=== PATIENT | male | born 1955 | race Caucasian/White ===

== ENCOUNTER → 2018-04-06 | Outpatient (CLI) | payer OTHER ==
[~2018-04-06] MED LIST: ASPI81TA28 PO; CARV25TA2 PO; FLUT1INH INH; FRS/40 PO; PRVHFAIN INH; SPRIN/30 INH
[2018-04-06 18:10] LABS: HEMATOCRIT 45.8 % (42-52); HEMOGLOBIN 15.2 g/dL (14.0-18.0); MEAN CELL VOLUME 89.3 fL (80-100); MEAN CORPUSCULAR HEMOGLOBIN 29.6 pg (25-34); MEAN CORPUSCULAR HGB CONC 33.2 g/dl (32-36); MEAN PLATELET VOLUME 11.5 fL (7.4-10.4); PLATELET COUNT 225 K/uL (130-400); RED CELL DISTRIBUTION WIDTH SD 49.3 fL (36.4-46.3); WHITE BLOOD COUNT 12.49 K/uL (4.8-10.8)
[2018-04-06 18:23] LABS: PTT PATIENT 30.1 SECONDS (21.0-31.0)
[2018-04-06 18:28] LABS: BLOOD UREA NITROGEN 20 mg/dl (7-18); CALCIUM 8.9 mg/dl (8.5-10.1); CARBON DIOXIDE 30 mmol/L (21-32); CREATININE 1.21 mg/dl (0.60-1.40); GLUCOSE 77 mg/dl (70-99); POTASSIUM 3.8 mmol/L (3.5-5.1); SODIUM 140 mmol/L (136-145)
== END | disposition home or self-care (01) ==
LOC: C.LABMFLN 11:16
PROVIDERS: ATTEND Internal Medicine Cardiovascular Disease
DX: Z01.818 Encounter for other preprocedural examination (principal)

== ENCOUNTER → 2018-04-14 | Day surgery (SDC) | payer OTHER ==
[~2018-04-14] VITALS: Ht 180.3 cm; Wt 145.0 kg
[~2018-04-14] MED LIST changes: +ADENOSINE IV SOLN 3 MG/ML 2 ML VIAL ONE; +ALBUT/IPRATROP 3MG/0.5MG NEB 3 ML VIAL INH SCH; +NURSING VERBAL MED ORDER ONE
[2018-04-14 07:15] VITALS: BP 166/82; PULSE 67; TEMP 37.2; O2SAT 98; Ht 180.3 cm; Wt 145.0 kg
[2018-04-14 08:10] VITALS: PULSE 63; O2SAT 96
--- NOTE | 2018-04-14 09:55 | ECHOCARDIOGRAM REPORT ---
*NOTICE TO RECEIVING LIBERTARIAN AGENCY This information is strictly Confidential and protected under [place] law. [place] law prohibits you from making any further disclosure of this information unless further disclosure is expressly permitted by the written consent of the person to whom it pertains or is authorized by law. A general authorization for the release of medical or other information is not sufficient for this purpose. Hospital accepts no responsibility if the information is made available to any other person, INCLUDING THE PATIENT. Interpretation Summary * Name: MICKEY CARR Study Date: 04/14/2018 08:19 AM BP: 166/82 mmHg * Patient Location: [facility] HR: 67 * : 1955 (M/d/yyyy) Gender: Male Height: 71 in * Age: 63 yrs Ethnicity: [place] Weight: 319 lb * Ordering Physician: Rashaun Ramirez * Referring Physician: Rashaun Ramirez * Performed By: Pia Francois RDCS * * Reason For Study: CHF * BSA: 2.6 m2 * -- Conclusions -- * Technically limited study despite use of Definity ultrasaound contrast. * 1. Grossly normal LV size, borderline concentric LVH. * 2. LVEF 50-55%. Abnormal septal motion consistent with conduction abnormality. * 3. Grossly normal RV size and function. * 4. No significant valvular wall motion abnormalities. * 5. No prior studies for comparison. Procedure Details * The study was technically limited. * The study was technically difficult. * Limited views were obtained. * There were technical limitations due to patient'sbody habitus * A contrast injection of Definity was performed to improve assessment of LV function. * Contrast was injected into an intravenous site in the left arm. * One vial of Definity ultrasound contrast was diluted in normal saline to a total volume of 10 ml. A total of '3' ml of solution was administered during imaging. * Lot # [id number] of Definity utilized for procedure. * Expiration date 03/17. * The attending nurse who injected the contrast agent was QUIANA WEST RN. Left Ventricle * The left ventricle is grossly normal size. * There is borderline concentric left ventricular hypertrophy. * Ejection Fraction = 50-55%. * Septal motion is consistent with conduction abnormality. Right Ventricle * The right ventricle is grossly normal size. * The right ventricular systolic function is normal as assessed by tricuspid annular plane systolic excursion (TAPSE) (normal >1.5 cm). Atria * The left atrial size is normal. * Right atrial size is normal. * No ASD detected; PFO is not assessed. Mitral Valve * There is mild mitral annular calcification. * There is no mitral valve stenosis. * Significant mitral regurgitation is absent. Tricuspid Valve * There is trace tricuspid regurgitation. Aortic Valve * The aortic valve is not well visualized. * No hemodynamically significant valvular aortic stenosis. * There is no significant aortic regurgitation. Pulmonic Valve * The pulmonary valve is inadequately visualized, but the Doppler data is adequate for interpretation. * Pulmonic stenosis is absent. * There is no significant pulmonary regurgitation. Pericardium/Pleural * There is no pericardial effusion. MMode 2D Measurements and Calculations LVAd ap4 36.9 cm\S\2 LVLd ap4 8.4 cm EDV(MOD-sp4) 131.0 ml LVAs ap4 18.2 cm\S\2 LVLs ap4 6.9 cm ESV(MOD-sp4) 40.7 ml EF(MOD-sp4) 68.9 % LVAd ap2 40.1 cm\S\2 LVLd ap2 8.6 cm EDV(MOD-sp2) 152.0 ml LVAs ap2 20.7 cm\S\2 LVLs ap2 7.1 cm ESV(MOD-sp2) 50.4 ml EF(MOD-sp2) 66.8 % CO(MOD-sp4) 6.0 l/min CI(MOD-sp4) 2.3 l/min/m\S\2 SV(MOD-sp4) 90.3 ml SI(MOD-sp4) 35.1 ml/m\S\2 CO(MOD-sp2) 6.7 l/min CI(MOD-sp2) 2.6 l/min/m\S\2 SV(MOD-sp2) 101.6 ml SI(MOD-sp2) 39.5 ml/m\S\2 Doppler Measurements and Calculations MV E max lavon 84.9 cm/sec MV dec time 0.10 sec LV V1 max PG 1.6 mmHg LV V1 max 63.1 cm/sec PA V2 max 79.1 cm/sec PA max PG 2.5 mmHg
--- NOTE | 2018-04-14 11:11 | Cardiology Follow-Up ---
Subjective Date of Service: Apr 14, 2018. Pt evaluation today including: conversation w/ patient, physical exam, lab review, review of studies, review of inpatient medication list History of Present Illness This is a very pleasant 63-year-old gentleman who has a complex cardiovascular history and has been primarily taking care of by [facility] in [place]. His history begins around 2011 when he presented with chest discomfort and he describes being told he had a heart attack and was sent to [place] where cardiac catheterization was performed. I do not have copies of those records or his catheterization, however I believe those records have been available and his notes from our office report that on April 04, 2012 he had a catheterization showing a 20% LAD, 20% circumflex and 50-60% right coronary artery stenosis with normal FFR. He is reported to have a normal left ventricular ejection fraction and normal left ventricular end-diastolic pressure. Subsequently an echocardiogram was done in June 19, 2015 where he was reported to have a moderately enlarged left ventricle and ejection fraction of 27%, he was treated medically and echocardiography in November 12, 2015 showed ejection fraction 41% with diffuse hypokinesis and more recently an echocardiogram December 18, 2016 showed normal left ventricular size and function with ejection fraction of 54%. He has also been troubled by supraventricular tachycardia. He does not recall having difficulty with this until starting on carvedilol in 2014 for his cardiomyopathy. Subsequently he has had a lot of difficulty with the palpitations, he does not have a lot of symptoms during it but it is bothersome to him. He specifically does not have chest discomfort, does not have lightheadedness or dizziness but does have some shortness of breath and a feeling of fatigue. He has been advised in the past to have electrophysiologic study and ablation, I believe it was actually scheduled but he canceled it. He was seen in our office in December of this year and we had discussed options including ablation and we planned on doing that today. Today however he describes having difficulty with breathing (he does have a long history of COPD) and he did not take his inhalers today. He also notes that he has had significant peripheral edema recently, at least 5 or 6 weeks, and evidently is undergoing testing to see if that is due to venous obstruction although he did not have an echocardiogram recently. He tells me he does not drink a lot of fluid but that he urinates substantially when he takes his diuretic. He tells me that he has a lot of difficulty laying flat because he will get short of breath. He has not been having chest discomfort and is not noticed much in the way of difficulty with exertion. He arrived in the hospital procedure area in sinus rhythm, I arranged an echocardiogram after I reviewed his history with him and before we wanted to start the procedure and during the echocardiogram he went into his supraventricular tachycardia at a rate of about 140 bpm. The echocardiogram suggested some left ventricular dysfunction during the SVT, I tried carotid massage which did not terminate it and he was very resistant to adenosine administration due to the side effects of the drug. He did spontaneously convert however before the echo was finished and during sinus rhythm his left ventricular function appeared relatively normal. During the episode he did not of chest discomfort, did not seem to have worsening of his shortness of breath I told him it that is how he feels when he has the arrhythmia which can last for days at a time occasionally. Social History Smoking Status: Current Every Day Smoker History of Alcohol Use: Yes (weekly beer) Review of Systems Respiratory: + shortness of breath, + problem reported (Wheezing) Cardiac: + see HPI, + edema Objective Vital Signs Past 12 Hours Date Time Temp Pulse Resp B/P (MAP) Pulse Ox O2 Delivery O2 Flow Rate FiO2 04/14/18 08:10 63 18 96 Room Air 04/14/18 07:15 37.2 67 18 166/82 (110) 98 Room Air Last Recorded Weight-Kilograms: 145 Physical Exam Constitutional: General Apperance: overweight Level of Distress: mild distress Lungs: Respiratory effort: good air movement Auscultation: no rales/crackles, expiratory wheezing Cardiovascular: Heart Auscultation: RRR, no murmurs, no gallops Extremities: edema (+3 bilateral pretibial pitting) Data Imaging: Echocardiography done initially during SVT suggested some left ventricular dysfunction however after termination of the SVT left ventricular function appeared normal. The significance of this is unclear, but there did appear to be anterior hypokinesis during the tachycardia. The patient had no symptoms of angina. Telemetry reviewed: Initially he was in sinus rhythm, during his echocardiogram he developed his supraventricular tachycardia, it appeared to originate with an atrial couplet and a prolonged CO interval on the second atrial beat. He then developed a sustained supraventricular tachycardia which is probably typical AV elsa reentry that lasted for about 20 minutes before terminating spontaneously with what looks like a another premature atrial beat although there is some irregularity before termination. Assessment and Plan 1. SVT: He describes having SVT beginning when carvedilol was introduced, it is conceivable that the carvedilol is making arrhythmia more sustained by adversely affecting the slow and fast pathway interaction. He did have a cardiomyopathy, but at this point it seems to have corrected and perhaps he does not need carvedilol. He is interested in potentially pursuing medical therapy for his arrhythmia and I have therefore recommended that we give a trial of verapamil to see if that helps. I therefore send in a prescription for that and discontinued the carvedilol. 2. Cardiomyopathy: He seems to have had a nonischemic cardiomyopathy which corrected with medical therapy, he was only on carvedilol and I am little bit nervous about discontinuing it but we can keep a close eye on his left ventricular function. 3. Coronary disease: He has known coronary artery disease which was felt to be nonobstructive in 2011 however at that time he was told that he had a myocardial infarction I do not know how that diagnosis was made. There is no pattern electrocardiography. I am a little bit concerned that during his tachycardia he seemed to have anterior wall hypokinesis, perhaps that is an ischemic response and he may have had progression of coronary artery disease. This may have to be investigated with stress testing but I have not arrange that as yet. 4. Peripheral edema: He has clear volume overload, he describes orthopnea but equates that to his COPD. I am concerned that he has significant fluid retention and perhaps diastolic congestive heart failure secondary to that. I am going to increase his diuretic to 40 mg twice a day and asked him to limit his fluid intake to a quart to a 1-1/2 quarts per day. I also told him to monitor his weight daily and he should lose around 1 pound per day. I am going to have him come back in for follow-up in a month, he knows to contact us in the meantime to let us know how the verapamil is working and how the diuresis is going.
== END | disposition home or self-care (01) ==
LOC: C.EP 06:23
PROVIDERS: ATTEND Internal Medicine Cardiovascular Disease
DX: I47.1 Supraventricular tachycardia (principal); I42.9 Cardiomyopathy, unspecified; I25.10 Atherosclerotic heart disease of native coronary artery without angina pectoris; J44.9 Chronic obstructive pulmonary disease, unspecified; R60.9 Edema, unspecified; F17.200 Nicotine dependence, unspecified, uncomplicated

== ENCOUNTER 2020-10-16 03:57 | Observation (INO) ==
--- NOTE | 2020-10-16 04:28 | Emergency Department Note ---
Impression & Plan Acute lower GI bleeding, Chronic bilateral lower abdominal pain, Diarrhea ED Provider Note Name: MICKEY CARR Age: 65 Sex: M Arrives Via: Ambulance Informant: Patient, EMS ED Provider: Yakov Townsend MD Chief Complaint: Bloody stool Impression: Acute Lower GI Bleeding Chronic Bilateral Lower Abdominal Pain Diarrhea Medical Decision Makin yr old male with CAD, Cardiomyopathy, Cholelithiasis, COPD, CHF, HLD, PE, PSVT, Anxiety/Depression on Xarelto amongst multiple other meds arrives for episode blood in stool. He has been dealing with lower abdominal pain for several months associated with constipation. He was seen here, as well as [facility] twice in the last 48 hours for abdominal pain. Overnight constipation flipped to diarrhea and started to have blood in stool. On arrival vitals OK, abdo exam benign with vague lower TTP without peritonitis, rectal exam without clear fissure/hemorrhoid and heme positive brown scant stool. R eviewed chart and did have CT just 1.5 days ago at [place]. Labs, vitals, normal while here. Constantly up to bathroom with diarrhea. He is on Xarelto, has blood in stool which i suspect is lower in nature, and more likely internal hemorrhoid after straining with constipation last few months, though no gross blood on exam. Prior Medical Record and Triage/Nursing Notes reviewed by Me Additional history obtained from [place] records Differentials:Diverticulosis, AVM, coagulopathy, colitis, inflammatory bowel disease, malignancy, Eileen-Toussaint tear, esophagitis, peptic ulcer disease, variceal bleed, gastritis, epistaxis, fissure, hemorrhoids, as well as other pathologies. Vital Signs: reviewed and remarkable for no significant abnormalities Interventions: Saline lock, nss bolus, zofran 4mg IV Labs:Reviewed and remarkable for no significant abnormalities Imaging:reviewed chart from [place] EKG:Per My Interpretation: Indication GI Bleed: Sinus rhythm with 1st av block 85 bpm, qtc 445. Poor baseline. There are some non-specific ST depression laterally. No Ectopy. No STEMI. Compared to EKG 09/19/20 st depression seem a bit increased. Consults:Dr Erika MOLINA Hospitalist Plan: Disposition:Hospitalization. Condition: Good History of Present Illness:65 yr old male with history of DVT on Xarelto arrives from home after episode of bloody diarrhea. Notes feeling constipated yesterday and was able to have BM after straining for about 15 minutes. Overnight he awoke with urge to have BM and had large diarrheal BM around 1am. Then again this occurred at 2:30am and unable to control BM and noted bloody stool at that time. Associated with some lower abdominal cramping which has been ongoing for the last few weeks. He admits multiple PCP/ER visits over the last few weeks for continued abdominal pain, mostly lower. Worse with movement. Found to have gallbladder stones and is to see Gen Surgery to discuss if that may be cause of his pain. He has never had colonoscopy nor endoscopy before. Denies history of GERD. No previous GI bleed issues. Denies trauma, falls, and injury. No fevers, chills, sob, cp, nausea, vomiting, syncope, rashes, bruising, headache, neck pain, leg pain/swelling nor other symptoms. No medications prior to arrival other than 500mL IV NSS by ems. Has not had further BM since this occurred. Patient notes he was in ED just a few days ago for continued abdominal pain, as well as several times in August. CTs, US, all have been unremarkable besides f indings of gallstones. Multiple rounds of labs done which have been unremarkable as well. Hgb was 15 on 09/19/20 ROS: See above HPI for pertinent positives & negatives. A total of 10 systems reviewed and were otherwise negative. Past Medical History:CAD, Cardiomyopathy, Cholelithiasis, COPD, CHF, HLD, PE, PSVT, Anxiety/Depression Past Surgical History:Cardiac Cath Family History:Father Emphysema, Prostate CA, Pulmary Embolism. Mother: CAD, HTN. Brother: CAD, HTN, Stroke. Grandfather: Stroke Social History:Smoker, Lives with , retired, No drugs/etoh Home Medications:Xarelto, Verapamil, Albuterol, Trazodone, Nitro, Zofran, buspirone, Lasix, fluticasone, Lisinopril, potassium, omeprazole, sucralfate Allergies:Tetracycline, Doxy Vitals:Blood Pressure: 139/55, Pulse 72, RR 15, T 36.7C, O2 96% on RA Physical Exam: GENERAL: Patient is anxious appearing and in minimal distress. EYES: No scleral icterus, unremarkable pupils. ENT: Mucous membranes moist, no nasal congestion. NECK: No masses appreciated, nomeningismus, trachea is midline. RESPIRATORY: No dyspnea. Clear to auscultation and equal bilaterally. No wheeze, no rhonchi. CARDIOVASCULAR: Regular rate and rhythm.No murmurs, rubs, gallops appreciated. GASTROINTESTINAL: Vague diffuse lower abdominal TTP, otherwise abdomen soft, non-tender, no peritonitis.Bowel sounds positive.No masses appreciated. RECTAL: Mild rectal irritation without blood nor clear fistula. Scant stool in rectal vault, no gross blood, dark brown, heme positive. BACK: No midline tenderness, no CVA tenderness EXTREMITIES: Normal motion all extremities, no cyanosis, no edema. NEUROLOGIC: Alert and oriented, no acute motor or sensory deficits, no focal weakness, cranial nerves grossly intact. SKIN: No rash, no jaundice, no diaphoresis. PSYCH: Appropriate GCS: 15 ED Course: Times/Reassessments: worsening diarrhea and abdominal pain/cramping Yakov Townsend MD Past Med/Surg History Medical History (Updated 10/16/20 @ 06:13 by Lenard James MD) Chronic anticoagulation COPD (chronic obstructive pulmonary disease) DVT (deep venous thrombosis) GERD (gastroesophageal reflux disease) Hypertension Insomnia Morbid obesity Pulmonary embolism Tobacco abuse Social History Smoking Status: Current every day smoker Feels Safe at Home: Yes Allergies Allergies Allergy/AdvReac Type Severity Reaction Status Date / Time Tetracyclines Allergy Severe Gastrointestinal Verified 10/16/20 04:19 Upset Home Meds Home Medications Medication Instructions Recorded Confirmed albuterol sulfate 2 puff INHALATION QID PRN 10/16/20 10/16/20 [id number] 1 inh INHALATION QAM 10/16/20 10/16/20 [Trelegy Ellipta] lisinopril 20 mg PO QAM 10/16/20 10/16/20 omeprazole 40 mg PO HS 10/16/20 10/16/20 rivaroxaban [Xarelto] 20 mg PO HS 10/16/20 10/16/20 trazodone 50 mg PO HS 10/16/20 10/16/20 verapamil 300 mg PO QAM 10/16/20 10/16/20 Results & Data (ED) Vital Signs Vital Signs - 24 hr 10/16/20 04:04 10/16/20 04:05 10/16/20 04:13 Temperature 36.7 C Temperature Source Oral Pulse Rate 89 81 72 Pulse Rate from SpO2 Sensor 84 81 Pulse Rhythm Regular Pulse Strength Normal Respiratory Rate 28 H 19 15 Respiratory Effort / Characteristics Non-Labored Spontaneous Respiratory Depth Normal Respiratory Pattern Regular Blood Pressure 139/55 L 139/55 L Blood Pressure Mean 83 83 Blood Pressure Position Lying Pulse Oximetry 97 97 96 Oxygen Delivery Method Room Air Sepsis Recent Fever Within 48 Hours No Sepsis New/Unexplained Change in Mental Status N/A Sepsis Action Taken by Nursing No Action Required 10/16/20 04:36 10/16/20 04:42 10/16/20 04:59 Temperature Temperature Source Pulse Rate 70 66 70 Pulse Rate from SpO2 Sensor 67 70 Pulse Rhythm Pulse Strength Respiratory Rate 21 17 17 Respiratory Effort / Characteristics Respiratory Depth Respiratory Pattern Blood Pressure 123/71 138/62 Blood Pressure Mean 88 87 Blood Pressure Position Pulse Oximetry 90 96 Oxygen Delivery Method Sepsis Recent Fever Within 48 Hours Sepsis New/Unexplained Change in Mental Status Sepsis Action Taken by Nursing 10/16/20 05:00 10/16/20 05:01 10/16/20 05:30 Temperature Temperature Source Pulse Rate 82 69 Pulse Rate from SpO2 Sensor 68 71 Pulse Rhythm Pulse Strength Respiratory Rate 19 18 Respiratory Effort / Characteristics Respiratory Depth Respiratory Pattern Blood Pressure Blood Pressure Mean 113 Blood Pressure Position Pulse Oximetry 90 98 Oxygen Delivery Method Sepsis Recent Fever Within 48 Hours Sepsis New/Unexplained Change in Mental Status Sepsis Action Taken by Nursing 10/16/20 06:01 Temperature Temperature Source Pulse Rate 85 Pulse Rate from SpO2 Sensor Pulse Rhythm Pulse Strength Respiratory Rate 21 Respiratory Effort / Characteristics Respiratory Depth Respiratory Pattern Blood Pressure Blood Pressure Mean Blood Pressure Position Pulse Oximetry Oxygen Delivery Method Sepsis Recent Fever Within 48 Hours Sepsis New/Unexplained Change in Mental Status Sepsis Action Taken by Nursing Laboratory Data Result diagrams: 10/16/20 04:36 10/16/20 04:36 Lab Results 10/16/20 10/16/20 10/16/20 Range/Units 04:15 04:36 04:36 WBC 10.99 H (4.8-10.8) K/uL RBC 5.00 (4.7-6.1) M/uL Hgb 14.5 (14.0-18.0) g/dL Hct 43.6 (42-52) % MCV 87.2 (80-100) fL MCH 29.0 (25-34) pg MCHC 33.3 (32-36) g/dL RDW Std Deviation 48.6 H (36.4-46.3) fL RDW Coeff of Rebecca 15.2 H (11.5-14.5) % Plt Count 249 (130-400) K/uL MPV 9.4 (7.4-10.4) fL Immature Gran % (Auto) 0.4 % Neut % (Auto) 88.1 % Lymph % (Auto) 4.3 % [place] % (Auto) 5.8 % Eos % (Auto) 1.3 % Baso % (Auto) 0.1 % Neut # (Auto) 9.69 H (1.4-6.5) K/uL Lymph # (Auto) 0.47 L (1.2-3.4) K/uL [place] # (Auto) 0.64 H (0.11-0.59) K/uL Eos # (Auto) 0.14 (0-0.5) K/uL Baso # (Auto) 0.01 (0-0.2) K/uL Immature Gran # (Auto) 0.04 H (0.00-0.02) K/uL APTT 30.8 (21.0-31.0) Seconds PTT Ratio 1.2 Sodium (136-145) mmol/L Potassium (3.5-5.1) mmol/L Chloride (98-107) mmol/L Carbon Dioxide (21-32) mmol/L Anion Gap (3-11) BUN (7-18) mg/dl Creatinine (0.6-1.4) mg/dl Est Cr Clr Drug Dosing ml/min Est GFR ( Amer) Est GFR (Non-Af Amer) BUN/Creatinine Ratio (10-20) Glucose (70-99) mg/dl Calcium (8.5-10.1) mg/dl Magnesium (1.8-2.4) mg/dl Total Bilirubin (0.2-1) mg/dl Direct Bilirubin (0-0.2) mg/dl AST (15-37) U/L ALT (12-78) U/L Alkaline Phosphatase (45-117) U/L Troponin I (0-0.045) ng/ml Total Protein (6.4-8.2) gm/dl Albumin (3.4-5.0) gm/dl Lipase (73-393) U/L Urine Color Dark Yellow Urine Appearance Cloudy A (Clear) Urine pH 5.5 (4.5-7.5) Ur Specific [place] 1.028 (1.000-1.030) Urine Protein Trace H (Negative) Urine Glucose (UA) Negative (Negative) Urine Ketones 1+ H (Negative) Urine Blood Negative (Negative) Urine Nitrite Negative (Negative) Urine Bilirubin 1+ H (Negative) Urine Urobilinogen Negative (Negative) Ur Leukocyte Esterase Negative (Negative) Urine WBC (Auto) 1-5 (0-5) /hpf Urine RBC (Auto) 0-4 (0-4) /hpf U Hyaline Cast (Auto) 10-30 H (0-5) /lpf U Epithel Cells (Auto) 20-30 H (0-5) /lpf Urine Bacteria (Auto) Negative (Negative) COVID-19 Eval Order 10/16/20 10/16/20 Range/Units 04:36 06:10 WBC (4.8-10.8) K/uL RBC (4.7-6.1) M/uL Hgb (14.0-18.0) g/dL Hct (42-52) % MCV (80-100) fL MCH (25-34) pg MCHC (32-36) g/dL RDW Std Deviation (36.4-46.3) fL RDW Coeff of Rebecca (11.5-14.5) % Plt Count (130-400) K/uL MPV (7.4-10.4) fL Immature Gran % (Auto) % Neut % (Auto) % Lymph % (Auto) % [place] % (Auto) % Eos % (Auto) % Baso % (Auto) % Neut # (Auto) (1.4-6.5) K/uL Lymph # (Auto) (1.2-3.4) K/uL [place] # (Auto) (0.11-0.59) K/uL Eos # (Auto) (0-0.5) K/uL Baso # (Auto) (0-0.2) K/uL Immature Gran # (Auto) (0.00-0.02) K/uL APTT (21.0-31.0) Seconds PTT Ratio Sodium 144 (136-145) mmol/L Potassium 3.8 (3.5-5.1) mmol/L Chloride 111 H (98-107) mmol/L Carbon Dioxide 27 (21-32) mmol/L Anion Gap 6.0 (3-11) BUN 21 H (7-18) mg/dl Creatinine 1.41 H (0.6-1.4) mg/dl Est Cr Clr Drug Dosing 79.2 ml/min Est GFR ( Amer) 61.0 Est GFR (Non-Af Amer) 52.6 BUN/Creatinine Ratio 15.1 (10-20) Glucose 95 (70-99) mg/dl Calcium 8.4 L (8.5-10.1) mg/dl Magnesium 2.2 (1.8-2.4) mg/dl Total Bilirubin 0.5 (0.2-1) mg/dl Direct Bilirubin 0.1 (0-0.2) mg/dl AST 7 L (15-37) U/L ALT 18 (12-78) U/L Alkaline Phosphatase 75 (45-117) U/L Troponin I < 0.015 (0-0.045) ng/ml Total Protein 6.4 (6.4-8.2) gm/dl Albumin 3.1 L (3.4-5.0) gm/dl Lipase 113 (73-393) U/L Urine Color Urine Appearance (Clear) Urine pH (4.5-7.5) Ur Specific [place] (1.000-1.030) Urine Protein (Negative) Urine Glucose (UA) (Negative) Urine Ketones (Negative) Urine Blood (Negative) Urine Nitrite (Negative) Urine Bilirubin (Negative) Urine Urobilinogen (Negative) Ur Leukocyte Esterase (Negative) Urine WBC (Auto) (0-5) /hpf Urine RBC (Auto) (0-4) /hpf U Hyaline Cast (Auto) (0-5) /lpf U Epithel Cells (Auto) (0-5) /lpf Urine Bacteria (Auto) (Negative) COVID-19 Eval Order Covid19 [facility] Administered Medications Sodium Chloride (Nss 1000ml) 1,000 mls @ 999 mls/hr IV .[id number] ONE Stop: 10/16/20 06:27 Last Admin: 10/16/20 05:35 Dose: 999 mls/hr Documented by: [id number] Discontinued Medications Ondansetron HCl (Ondansetron Inj 2 Mg/Ml 2 Ml Vial) 4 mg IV NOW STA Stop: 10/16/20 05:28 Last Admin: 10/16/20 05:35 Dose: 4 mg Documented by: [id number] Discharge Plan Visit Data Chief Complaint: GI Bleed Stated Complaint: GI BLEED ED Provider: Yakov Townsend Discharge Problem: Acute lower GI bleeding, Chronic bilateral lower abdominal pain, Diarrhea Forms Stand Alone Forms: [facility] [place] [employer] Prescriptions Prescriptions: No Action trazodone 50 mg Tablet 50 mg PO HS RF: 0 lisinopril 20 mg Tablet 20 mg PO QAM RF: 0 omeprazole 40 mg Capsule,Delayed Release(Dr/Ec) 40 mg PO HS RF: 0 verapamil 300 mg Capsule, [address] 300 mg PO QAM RF: 0 albuterol sulfate 90 mcg/actuation Hfa Aerosol Inhaler 2 puff INHALATION QID PRN (Reason: Shortness Of Breath Or Wheezing) RF: 0 Xarelto 20 mg Tablet 20 mg PO HS RF: 0 Trelegy Ellipta 100-62.5-25 mcg Blister With Device 1 inh INHALATION QAM RF: 0
[2020-10-16 04:43] LABS: Appearance Urine Cloudy (Clear); Bacteria Urine Automated Negative (Negative); Blood Urine Negative (Negative); Color Urine Dark Yellow; Epithelial Cell Urine Auto 20-30 /lpf (0-5); Glucose Urine UA Negative (Negative); Ketones Urine 1+ (Negative); Leukocyte Esterase Urine Negative (Negative); Nitrite Urine Negative (Negative); Protein Urine Trace (Negative); RBC Urine Automated 0-4 /hpf (0-4); Specific Gravity Urine 1.028 (1.000-1.030); Urobilinogen Urine Negative (Negative); pH Urine 5.5 (4.5-7.5)
[2020-10-16 04:44] LABS: Bilirubin Urine 1+ (Negative)
[2020-10-16 04:47] LABS: Basophils # (auto) 0.01 K/uL (0-0.2); Basophils % (auto) 0.1 %; Eosinophils # (auto) 0.14 K/uL (0-0.5); Eosinophils % (auto) 1.3 %; Hematocrit (blood only) 43.6 % (42-52); Hemoglobin 14.5 g/dL (14.0-18.0); Immature Granulocytes # (auto) 0.04 K/uL (0.00-0.02); Immature Granulocytes % (auto) 0.4 %; Lymphocytes # (auto) 0.47 K/uL (1.2-3.4); Lymphocytes % (auto) 4.3 %; Mean Corpuscular Hgb Conc 33.3 g/dL (32-36); Mean Corpuscular Volume 87.2 fL (80-100); Mean Platelet Volume 9.4 fL (7.4-10.4); Monocytes # (auto) 0.64 K/uL (0.11-0.59); Monocytes % (auto) 5.8 %; Neutrophils # (auto) 9.69 K/uL (1.4-6.5); Neutrophils % (auto) 88.1 %; Platelet Count 249 K/uL (130-400); RDW Coefficient of Variation 15.2 % (11.5-14.5); RDW Standard Deviation 48.6 fL (36.4-46.3); White Blood Count 10.99 K/uL (4.8-10.8)
[2020-10-16 04:57] LABS: Partial Thromboplastin Ratio 1.2; Partial Thromboplastin Time 30.8 Seconds (21.0-31.0)
[2020-10-16 05:04] LABS: Alanine Aminotransferase 18 U/L (12-78); Albumin Level 3.1 gm/dl (3.4-5.0); Aspartate Aminotransferase 7 U/L (15-37); BUN Creatinine Ratio 15.1 (10-20); Bilirubin Direct 0.1 mg/dl (0-0.2); Blood Urea Nitrogen 21 mg/dl (7-18); Calcium 8.4 mg/dl (8.5-10.1); Carbon Dioxide 27 mmol/L (21-32); Chloride 111 mmol/L (98-107); Creatinine Clr Calc Pharmacy 79.2 ml/min; Est GFR (Non-African American) 52.6; Glucose 95 mg/dl (70-99); Lipase 113 U/L (73-393); Magnesium 2.2 mg/dl (1.8-2.4); Potassium 3.8 mmol/L (3.5-5.1); Sodium 144 mmol/L (136-145)
[2020-10-16 05:09] LABS: Alkaline Phosphatase 75 U/L (45-117); Bilirubin,Total 0.5 mg/dl (0.2-1); Total Protein 6.4 gm/dl (6.4-8.2); Troponin I < 0.015 ng/ml (0-0.045)
[2020-10-16] MEDS ORDERED: ONDANSETRON INJ 2 MG/ML 2 ML VIAL IV STA (05:27)
[2020-10-16] MEDS ORDERED: SODIUM CHLORIDE 0.9% 1000ML 1,000 ML IV ONE (05:27)
--- NOTE | 2020-10-16 06:25 | History & Physical Report ---
Date of Service October 16, 2020 Assessment & Plan (1) Bright red blood per rectum: Patient has had chronic abdominal pain over the past several months, and reportedly has been seen by his PCP and 3 emergency department visits as recently as Oct 14. There reportedly is a CT scan which shows cholelithiasis, and patient reportedly is also scheduled for an MRCP. His pain is not consistent at this time with gallbladder disease, and we will not pursue that further at this time. Will attempt to get records from [facility] where patient had the studies performed. He does have an appointment with Dr. Calix is scheduled for the near future, and Dr. Calix will be consulted see patient during this admission. H&H every 6 hours to assess for stability He will remain off Xarelto, and do not see any need for reversal at this time as patient has only had 1 bloody bowel movement, and did not have bright red blood on rectal examination but was heme positive. Patient is complaining of loose stools at this time in ED and ask for an antidiarrheal, which he will not be given at this time. His diarrhea is likely secondary to the release of stool from chronic constipation. With hold the patient's verapamil, and change him to metoprolol succinate, as it is possible the verapamil is the cause of his constipation, or obese contributing to it. Ceftriaxone 2 g IV daily Present on Admission?: Yes (2) Hypertension: Hold lisinopril due to renal insufficiency. Hold verapamil due to potentially causing constipation Place on metoprolol succinate 25 mg p.o. twice daily Patient reports that he does follow with Dr. Ramirez, however, as noted above, there are duplicate charts for this patient and his chart with all his records in it is not available Present on Admission?: Yes (3) GERD (gastroesophageal reflux disease): Change omeprazole to pantoprazole per formulary interchange Present on Admission?: Yes (4) COPD (chronic obstructive pulmonary disease): Continue Trelegy Ellipta 1 inhalation every morning. If necessary, will resume his as needed albuterol sulfate 2 puffs 4 times daily as needed Present on Admission?: Yes (5) Tobacco abuse: Cessation counseling Present on Admission?: Yes (6) Pulmonary embolism: Pulmonary embolism/DVT history- On chronic anticoagulation with Xarelto, which will be held due to lower GI bleeding. Can order venous Dopplers and CT angiography of chest to assess for persistence of clot from 4 years ago, if patient is required to stay off Xarelto for an extended interval, to assess for safety. Present on Admission?: Yes (7) DVT (deep venous thrombosis): See above Present on Admission?: Yes (8) Insomnia: Continue trazodone 50 mg at bedtime Present on Admission?: Yes (9) Renal insufficiency: Creatinine 1.41 upon admission, with no previous records and baseline availability at this time. We will place on NSS at 100 mils per hour, and recheck in the a.m. Present on Admission?: Yes (10) Morbid obesity: Health counseling Present on Admission?: Yes (11) Chronic anticoagulation: Holding Xarelto as noted above due to lower GI bleeding Present on Admission?: Yes History of Present Illness Chief Complaint: The patient presents to the emergency department with complaint of worsening of his chronic abdominal pain, and after straining to move his bowels early day, after several bowel movements he reports that he did have bright red blood per rectum x1 Primary Care Provider: Terence Arellano MD The patient is a 65-year-old male with a past medical history including DVT, PE, COPD, hypertension, GERD, insomnia, chronic tobacco use and on chronic anticoagulation with Xarelto. He has had ongoing abdominal pains for several months, he reportedly has been seen by his PCP, and has had multiple emergency department visits with no determination as to cause. In particular on Oct 14, the patient was seen initially at [facility] emergency department, then seen by Dr. Mijares at [facility] emergency department, and then was seen for a second [facility] emergency department visit later on that day. He reportedly has had 2 CTs of abdomen and pelvis performed, and reportedly 1 had been found to have cholelithiasis, and he was also reportedly scheduled to have an MRCP in the near future. Unfortunately, at the time of this dictation, there are 2 charts for this patient, with the present active chart not having any of his previous information in it. At this time in the emergency department, the patient is complaining more of loose stools, and would like to have an antidiarrheal agent. Allergies Allergy/AdvReac Type Severity Reaction Status Date / Time Tetracyclines Allergy Severe Gastrointestinal Verified 10/16/20 04:19 Upset Home Medications Medication Instructions Recorded Confirmed Type albuterol sulfate 2 puff INHALATION QID PRN 10/16/20 10/16/20 History sqtikbppfug-qdbdovvaj-xcwdvvim 1 inh INHALATION QAM 10/16/20 10/16/20 History [Trelegy Ellipta] lisinopril 20 mg PO QAM 10/16/20 10/16/20 History omeprazole 40 mg PO HS 10/16/20 10/16/20 History rivaroxaban [Xarelto] 20 mg PO HS 10/16/20 10/16/20 History trazodone 50 mg PO HS 10/16/20 10/16/20 History verapamil 300 mg PO QAM 10/16/20 10/16/20 History Past Med/Surg History Medical History (Updated 10/16/20 @ 06:13 by Lenard James MD) Chronic anticoagulation COPD (chronic obstructive pulmonary disease) DVT (deep venous thrombosis) GERD (gastroesophageal reflux disease) Hypertension Insomnia Morbid obesity Pulmonary embolism Tobacco abuse Social History Smoking Status: Current every day smoker Feels Safe at Home: Yes Review of Systems Review of Systems: The patient denies chest pain, palpitations, shortness of breath, dyspnea on exertion, cough, lower extremity swelling, sore throat, fevers, chills, sweats, nausea, vomiting, blood in urine , dysuria, urinary frequency or urgency, lightheadedness, dizziness, headache, memory loss, loss of consciousness, rash, imbalance, focal or generalized weakness, numbness or tingling in arms or legs, generalized arthralgias or myalgias, back or neck pain, or night sweats. The review of systems is otherwise negative other than for that already noted above, and at least 10 systems have been reviewed. Physical Exam Physical Exam: The patient is awake, alert and oriented 3, well developed and well nourished, normocephalic and atraumatic, lying in bed and in no acute distress. HEENT--PERRL, EOMI, mucous membranes and oropharynx dry. Neck--supple. No JVD. No bruits. Thyroid normal, trachea midline, no adenopathy. Heart--normal S1 and S2. No murmurs, rubs or gallops. Lungs--clear bilaterally, no respiratory distress, no accessory muscle use. Abdomen--normal bowel sounds and soft. Mild generalized tenderness. Nondistended. Morbidly obese Extremities--2+ bilateral pitting pedal and ankle edema Dermatologic--normal skin turgor, normal color, no abnormal lymph nodes, no rash. Neurologic--cranial nerves II through XII grossly intact. Rheumatologic--normal range of motion. Psychiatric--normal affect. Results & Data Results & Data ([facility]) Vital Signs (Past 12 Hours) Vital Signs Temp Pulse Resp BP Pulse Ox 10/16/20 04:13 98.1 F 72 15 139/55 L 96 Laboratory Results Laboratory Results WBC 10.99 K/uL (4.8-10.8) H 10/16/20 04:36 RBC 5.00 M/uL (4.7-6.1) 10/16/20 04:36 Hgb 14.5 g/dL (14.0-18.0) 10/16/20 04:36 Hct 43.6 % (42-52) 10/16/20 04:36 MCV 87.2 fL (80-100) 10/16/20 04:36 MCH 29.0 pg (25-34) 10/16/20 04:36 MCHC 33.3 g/dL (32-36) 10/16/20 04:36 RDW Std Deviation 48.6 fL (36.4-46.3) H 10/16/20 04:36 RDW Coeff of Rebecca 15.2 % (11.5-14.5) H 10/16/20 04:36 Plt Count 249 K/uL (130-400) 10/16/20 04:36 MPV 9.4 fL (7.4-10.4) 10/16/20 04:36 Immature Gran % (Auto) 0.4 % 10/16/20 04:36 Neut % (Auto) 88.1 % 10/16/20 04:36 Lymph % (Auto) 4.3 % 10/16/20 04:36 Mingo % (Auto) 5.8 % 10/16/20 04:36 Eos % (Auto) 1.3 % 10/16/20 04:36 Baso % (Auto) 0.1 % 10/16/20 04:36 Neut # (Auto) 9.69 K/uL (1.4-6.5) H 10/16/20 04:36 Lymph # (Auto) 0.47 K/uL (1.2-3.4) L 10/16/20 04:36 Mingo # (Auto) 0.64 K/uL (0.11-0.59) H 10/16/20 04:36 Eos # (Auto) 0.14 K/uL (0-0.5) 10/16/20 04:36 Baso # (Auto) 0.01 K/uL (0-0.2) 10/16/20 04:36 Immature Gran # (Auto) 0.04 K/uL (0.00-0.02) H 10/16/20 04:36 APTT 30.8 Seconds (21.0-31.0) 10/16/20 04:36 PTT Ratio 1.2 10/16/20 04:36 Sodium 144 mmol/L (136-145) 10/16/20 04:36 Potassium 3.8 mmol/L (3.5-5.1) 10/16/20 04:36 Chloride 111 mmol/L (98-107) H 10/16/20 04:36 Carbon Dioxide 27 mmol/L (21-32) 10/16/20 04:36 Anion Gap 6.0 (3-11) 10/16/20 04:36 BUN 21 mg/dl (7-18) H 10/16/20 04:36 Creatinine 1.41 mg/dl (0.6-1.4) H 10/16/20 04:36 Est Cr Clr Drug Dosing 79.2 ml/min 10/16/20 04:36 Est GFR ( Amer) 61.0 10/16/20 04:36 Est GFR (Non-Af Amer) 52.6 10/16/20 04:36 BUN/Creatinine Ratio 15.1 (10-20) 10/16/20 04:36 Glucose 95 mg/dl (70-99) 10/16/20 04:36 Calcium 8.4 mg/dl (8.5-10.1) L 10/16/20 04:36 Magnesium 2.2 mg/dl (1.8-2.4) 10/16/20 04:36 Total Bilirubin 0.5 mg/dl (0.2-1) 10/16/20 04:36 Direct Bilirubin 0.1 mg/dl (0-0.2) 10/16/20 04:36 AST 7 U/L (15-37) L 10/16/20 04:36 ALT 18 U/L (12-78) 10/16/20 04:36 Alkaline Phosphatase 75 U/L (45-117) 10/16/20 04:36 Troponin I < 0.015 ng/ml (0-0.045) 10/16/20 04:36 Total Protein 6.4 gm/dl (6.4-8.2) 10/16/20 04:36 Albumin 3.1 gm/dl (3.4-5.0) L 10/16/20 04:36 Lipase 113 U/L (73-393) 10/16/20 04:36 Urine Color Dark Yellow 10/16/20 04:15 Urine Appearance Cloudy (Clear) A 10/16/20 04:15 Urine pH 5.5 (4.5-7.5) 10/16/20 04:15 Ur Specific Ronda 1.028 (1.000-1.030) 10/16/20 04:15 Urine Protein Trace (Negative) H 10/16/20 04:15 Urine Glucose (UA) Negative (Negative) 10/16/20 04:15 Urine Ketones 1+ (Negative) H 10/16/20 04:15 Urine Blood Negative (Negative) 10/16/20 04:15 Urine Nitrite Negative (Negative) 10/16/20 04:15 Urine Bilirubin 1+ (Negative) H 10/16/20 04:15 Urine Urobilinogen Negative (Negative) 10/16/20 04:15 Ur Leukocyte Esterase Negative (Negative) 10/16/20 04:15 Urine WBC (Auto) 1-5 /hpf (0-5) 10/16/20 04:15 Urine RBC (Auto) 0-4 /hpf (0-4) 10/16/20 04:15 U Hyaline Cast (Auto) 10-30 /lpf (0-5) H 10/16/20 04:15 U Epithel Cells (Auto) 20-30 /lpf (0-5) H 10/16/20 04:15 Urine Bacteria (Auto) Negative (Negative) 10/16/20 04:15 Code Status & VTE Plan Code Status Full code VTE Prophylaxis Plan VTE Prophylaxis will be ordered: Yes PG Care Time/CCT Total # of Minutes Spent Total Time Spent with Patient: Total time spent is greater than 50% in coordination of care (as documented) at patient's floor/unit and/or counseling patient: Coding Level of Care Code 24450 OBS Care - Level 3 Diagnoses Bright red blood per rectum K62.5 Hypertension I10 GERD (gastroesophageal reflux disease) K21.9 COPD (chronic obstructive pulmonary disease) J44.9 Tobacco abuse Z72.0 Pulmonary embolism I26.99 DVT (deep venous thrombosis) I82.409 Insomnia G47.00 Renal insufficiency N28.9 Morbid obesity E66.01 Chronic anticoagulation Z79.01
[2020-10-16 07:17] LABS: INR 1.1 (0.9-1.1); Prothrombin Time 11.4 Seconds (9.0-12.0)
--- OUTSIDE RECORDS SUMMARY | 2020-10-16 07:32 | External Medical Summary | Continuity of Care Document ---
:1955 Author Name Tae Overton, Provider Address Unavailable Unavailable , Care Team Providers Name Role Phone [email or web address] [email or web address] Sandrine Jansen Unavailable [email or web address] [email or web address] HAN Overton, Marvel Unavailable Unavailable Unavailable Unavailable Unavailable Problems Pulmonary emboli (415.19) (I26.99) On statin therapy (V58.69) (Z79.899) Arteriosclerotic coronary artery disease (414.00) (I25.10) PSVT (paroxysmal supraventricular tachycardia) (427.0) (I47. 1) Encounter for smoking cessation counseling (V65.42) (Z71.6) Allergic rhinitis due to pollen (477.0) (J30.1) Chronic obstructive pulmonary disease, g roup A, by Global Initiative for Chronic Obstructive Lung Disease 2013 classification (496) (J44.9) Dyspnea on exertion (786.09) (R06.00) Chronic anticoagulation (V58.61) (Z79.01) Diastolic dysfunction (429.9) (I51.89) Chronic diastolic congestive heart failure (428.32) (I50.32) Phlebitis or thrombophlebitis of lower extremity (451.2) (I8 0.3) Tobacco use disorder (305.1) (F17.200) Venous insufficiency (459.81) (I87.2) Anxiety and depression (300.00) (F41.9) 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 Nydegger, M.D. Rashaun C. Start: 14-Apr-2018 Quantity: 60 Refills: 5 Trelegy Ellipta 100-62.5-25 MCG/INH Inha lation Aerosol Powder Breath Activated; INHALE 1 PUFF ONCE DAILY Hilda [employer]ON[employer] Sandrine Machuca Start: 16-Jun-2018 Quantity: 2 Refills: 0 Fluticasone Propionate 50 MCG/ACT Nasal Suspension; USE 2 SPRAYS IN EACH NOSTRIL ONCE DAILY Brooklynn Arellano Start: 05-Jan-2019 Quantity: 1 16 GM Bottle Refills: 2 predniSONE 20 MG Oral Tablet; 3 by mouth daily for 3 days then 2 by mouth daily for 3 days. Then 1 by mouth daily for 3 days then one half daily for 4 days then discontin Brooklynn Arellano Start: 05-Jan-2019 Quantity: 21 Refills: 0 Atorvastatin Calcium 20 MG Oral Tablet; Take 1 tablet daily Brooklynn Ramirez Start: 09-Dec-2018 Quantity: 30 Refills: 11 Verapamil HCl ER 300 MG Oral Capsule Ext ended Release 24 Hour; TAKE 1 CAPSULE EVERY MORNING DAILY. Brooklynn Ramirez Start: 09-Dec-2018 Quantity: 30 Refills: 11 buPROPion HCl ER (SR) 200 MG Oral Tablet Extended Release 12 Hour; TAKE 1 TABLET DAILY. Brooklynn Arellano Start: 30-May-2018 Quantity: 30 Refills: 5 Warfarin Sodium 5 MG Oral Tablet; 1 po daily Brooklynn Arellano Start: 23-May-2018 Quantity: 45 Refills: 5 Procedures History of Cardiac Cath Procedure Summary Status: Completed Immunizations Flublok Quadrivalent 0.5 ML Intramuscular Solution Pre filled Syringe On: 30-May-2018 14:01 Lot #: [id number], [employer] Pneumococcal polysaccharide vaccine, 23 valent On: 12-Oct-19 19 9:10 Lot #: [id number], [employer] Family History Mother Family history of cardiovascular disease (V17.49) (Z82.49) S tatus: Active Family history of hypertension (V17.49) (Z82.49) Status: Act ford Brother Family history of cardiovascular disease (V17.49) (Z82.49) S tatus: Active Family history of hypertension (V17.49) (Z82.49) Status: Act ford Family history of cerebrovascular accident (V17.1) (Z82.3) S tatus: Active Father Family history of prostate cancer (V16.42) (Z80.42) Status: Active Family history of pulmonary embolism (V17.49) (Z82.49) Statu s: Active Grandfather Family history of cerebrovascular accident (V17.1) (Z82.3) S tatus: Active Social History - Smoking Status Smokes tobacco daily Plan of Treatment Planned Encounters Appointment; Rashaun Ramirez M.D. Start: 14-Jul-2019 10:3 0 Request Planned Observations Planned Goals not documented Results No Known Results Results not documented Encounters Appointment; Terence Arellano M.D. 05-Jan-2019 14:00 Encounter Diagnosis: Problem not documented Appointment; Rashaun Ramirez M.D. 09-Dec-2018 10:00 Encounter Diagnosis: Problem not documented Appointment; Terence Arellano M.D. 16-Nov-2018 14:30 Encounter Diagnosis: Problem not documented Appointment; Raymon Montemayor PA-C 09-Nov-2018 9:00 Encounter Diagnosis: Problem not documented Appointment; Sandrine Stevens CRNP 27-Oct-2018 11:00 Encounter Diagnosis: Problem not documented Appointment; Rashaun Ramirez M.D. 14-Jul-2019 10:30 Encounter Diagnosis: Problem not documented
[2020-10-16] MEDS ORDERED: SODIUM CHLORIDE 0.9% 1000ML 1,000 ML IV SCH (07:48)
[2020-10-16] MEDS ORDERED: ONDANSETRON INJ 2 MG/ML 2 ML VIAL IV PRN (07:48)
[2020-10-16] MEDS ORDERED: ACETAMINOPHEN 325 MG TAB PO PRN (07:48)
[2020-10-16] MEDS ORDERED: cefTRIAXone SODIUM 2,000 MG in DEXTROSE 5% 50 ML IV SCH (08:00)
[2020-10-16] MEDS ORDERED: METOPROLOL SUCC 25MG EXT REL TAB PO SCH (09:00)
[2020-10-16] MEDS ORDERED: UMECLIDINIUM/VILANTEROL 62.5/25MCG 7 PUFFS/INHALER INH SCH (09:00)
[2020-10-16] MEDS ORDERED: FLUTICASONE FUROATE 100MCG 14 PUFFS/INHALER INH SCH (09:00)
--- NOTE | 2020-10-16 09:09 | Gastrointestinal Consultation ---
Date of Consultation October 16, 2020 Assessment & Plan (1) Abdominal pain: (2) Bright red blood per rectum: (3) Constipation: -Recommended EGD & colonoscopy to be completed on 10/17, however patient does not wish to stay hospitalized for inpatient testing. He reports he will consent to outpatient EGD/colon. -Monitor H/H while admitted, though bleeding seems to be hemorrhoidal likely due to bowel changes -Obtain notes from [facility]; patient is also in the midst of a gallbladder work-up for a possible cholecystectomy -Obtain stool culture, gram stain, C diff testing -Continue Omeprazole 40 mg BID Our office will contact patient to arrange outpatient scopes & subsequent follow-up. Supervising Physician Co-Signing Physician Notes I personally evaluated the patient and agree with the findings as documented by Dian Arnett, PAC Exam: abd: soft, nt, nd plan for EGD and colonoscopy as an outpatient to further evaluate his symptoms. History of Present Illness Reason for Consultation: rectal bleeding, abdominal pain Attending Physician: Jaspreet Diana DO History of Present Illness Patient is a 65 yo male with PMH of DVT/PE, HTN, GERD, COPD, CHF, & PSVT who presented to [facility] after several ED visits & PCP visits since 10/14/2020. He reports chronic abdominal pain for the past 3-6 months. He was reportedly seen by general surgery in July 2021 at the request of his PCP for consideration of a cholecystectomy. He reportedly has been scheduled for an MRCP at [facility] for further evaluation. He had a CT a/p on 09/04 that indicated cholelithiasis & sludge and a subsequent US that indicated the same. LFTs appear unremarkable at present. He reportedly has an upcoming outpatient GI evaluation with Dr. Calix. Unfortunately, because his work-up has been split between 2 health systems, I do not presently have all of his notes/tests from [facility]. No history of significant NSAID use. No pertinent family history. Labs indicate a WBC count of 10,990, INR 1.2, H/H 14.5/43.6, BUN/Cr 21/1.41. He has struggled with constipation recently and reportedly had 1 bowel movement with bright red blood. He is anticoagulated on Xarelto. Patient is currently reporting that he will not stay hospitalized for inpatient testing. He also reports he was constipated only one day and notes 6-7 episodes of loose stool this AM. Allergies Allergy/AdvReac Type Severity Reaction Status Date / Time Tetracyclines Allergy Severe Gastrointestinal Verified 10/16/20 08:09 Upset tetracycline AdvReac Intermediate SEVERE Verified 10/16/20 08:09 DIARRHEA doxycycline AdvReac diarrhea Verified 10/16/20 08:09 and nausea Home Medications Medication Instructions Recorded Confirmed Type verapamil 300 mg capsule 24hr 300 mg PO DAILY #90 cap 12/04/19 10/15/[address],ext.release rivaroxaban 20 mg tablet 20 mg PO DAILY #30 tab 03/28/20 10/15/20 Rx albuterol sulfate 90 mcg/actuation 2 inh INH Q4H PRN #18 g 06/06/20 10/15/20 Rx aerosol inhaler sodium chloride 7 % for 4 ml INHALATION BID #240 ml 08/09/20 10/15/20 Rx nebulization trazodone 50 mg tablet 50 mg PO DAILY PRN #90 tab 08/20/20 10/15/20 Rx nitroglycerin 0.4 mg sublingual 0.4 mg SUBLINGUAL Q5M PRN #14 tab 09/02/20 10/15/20 Rx tablet ondansetron HCl 4 mg tablet 4 mg PO Q8H PRN #20 tab 09/12/20 10/15/20 Rx ipratropium 0.5 mg-albuterol 3 mg 3 ml INHALATION DIRECTED #15 ml 09/18/20 10/15/20 Rx (2.5 mg base)/3 mL nebulization soln buspirone 10 mg tablet 10 mg PO TID PRN #90 tab 09/23/20 10/15/20 Rx fluticasone fur. 200 mcg-umeclid 1 inh INHALATION DAILY #60 ea 09/23/20 10/15/20 Rx 62.5 mcg-vilant 25 mcg inhalat.powder omeprazole 40 mg capsule,delayed 40 mg PO BID #60 cap 10/09/20 10/15/20 Rx release sucralfate 100 mg/mL oral 10 ml PO QID #420 ml 10/09/20 10/15/20 Rx suspension furosemide 20 mg tablet 20 mg PO DAILY #30 tab 10/15/20 10/15/20 Rx lisinopril 10 mg tablet 10 mg PO DAILY #30 tab 10/15/20 10/15/20 Rx ondansetron HCl 8 mg tablet 8 mg PO Q8H PRN 2 Days #14 tab 10/15/20 10/15/20 Rx potassium chloride 10 mEq 10 meq PO DAILY #30 cap 10/15/20 10/15/20 Rx capsule,extended release albuterol sulfate 2 puff INHALATION QID PRN 10/16/20 10/16/20 History [id number]-ffbzqundc-[id number] 1 inh INHALATION QAM 10/16/20 10/16/20 History [Trelegy Ellipta] lisinopril 20 mg PO QAM 10/16/20 10/16/20 History omeprazole 40 mg PO HS 10/16/20 10/16/20 History rivaroxaban [Xarelto] 20 mg PO HS 10/16/20 10/16/20 History trazodone 50 mg PO HS 10/16/20 10/16/20 History verapamil 300 mg PO QAM 10/16/20 10/16/20 History Patient History Medical History Allergic rhinitis Anticoagulant disorder Anxiety and depression Arteriosclerotic coronary artery disease Bronchitis CAD (coronary artery disease) Cardiomyopathy Cholelithiasis Chronic anticoagulation Chronic diastolic CHF (congestive heart failure) Chronic obstructive pulmonary disease, group A, by Global Initiative for Chronic Obstructive Lung Disease 2013 classification COPD (chronic obstructive pulmonary disease) Diastolic dysfunction Dyspnea on exertion History of myocardial infarction HTN (hypertension) Hx of blood clots Hypercholesterolemia Myocardial infarct Organic impotence PSVT (paroxysmal supraventricular tachycardia) Pulmonary emboli Tobacco use disorder Venous insufficiency Surgical History History of cardiac cath Family History (System 10/16/20 @ 08:09 by Maria A Meza) Father Emphysema (subcutaneous) (surgical) resulting from a procedure Prostate cancer Pulmonary embolism Mother Cardiovascular disease Hypertension Brother Cardiovascular disease Hypertension Stroke Grandfather Stroke Social History (System 10/16/20 @ 08:09 by Maria A Meza) Smoking Status: Current every day smoker Tobacco Type: Cigarettes packs per day: 1; Years Smoked: 20; Cigarettes Per Day: 5; Second Hand Exposure: No; Hx Alcohol Use: No Hx Substance Use: No Preferred Language: Filipino Communication Ability: Effective Manufacturing Assistant Required: Yes Beliefs That Will Affect Care: None marital status: Current Living Situation: Family current occupational status: retired Feels Safe at Home: Yes Seatbelt Use: always Assistive Devices: Glasses Review of Systems Constitutional: no fever and no chills Respiratory: no cough and no dyspnea Cardiovascular: no chest pain Gastrointestinal: + abdominal pain, + constipation and + blood in stools Musculoskeletal: no problem reported Psychiatric: no problem reported Physical Exam Constitutional: well developed Neck: normal visual inspection Respiratory: normal respiratory effort Cardiovascular: Extremities: no edema Gastrointestinal (Abdomen): Inspection/Auscultation: abdomen not distended Percussion/Palpation: + abdomen tender and abdomen soft Musculoskeletal: Head/Neck/Chest: normocephalic Skin: no rashes, warm and dry Psychiatric: A+Ox3, euthymic affect Results & Data ([facility]) Vital Signs (Past 12 Hours) Vital Signs Temp Pulse Pulse Resp BP BP Pulse Ox 10/16/20 07:03 82 20 133/77 97 10/16/20 06:35 86 20 136/71 100 10/16/20 06:33 92 H 20 10/16/20 06:01 85 21 10/16/20 05:30 69 18 98 10/16/20 05:00 82 19 90 10/16/20 04:59 70 17 138/62 96 10/16/20 04:42 66 17 123/71 90 10/16/20 04:36 70 21 10/16/20 04:13 36.7 C 72 15 139/55 L 96 10/16/20 04:05 81 19 97 10/16/20 04:04 89 28 H 139/55 L 97 PG Care Time/CCT Total # of Minutes Spent Total Time Spent with Patient: Total time spent is greater than 50% in coordination of care (as documented) at patient's floor/unit and/or counseling patient: Coding Level of Care Code 96765 Inpt Consult Level 4 Diagnoses Abdominal pain R10.9 Abdominal location: unspecified location Bright red blood per rectum K62.5 Constipation K59.00 (1) Abdominal pain Abdominal location: unspecified location Qualified Code(s): R10.9 - Unspecified abdominal pain
[2020-10-16 09:12] LABS: BUN Creatinine Ratio 14.1 (10-20); Calcium 8.9 mg/dl (8.5-10.1); Creatinine Clr Calc Pharmacy 82.8 ml/min; Est GFR (African American) 64.3; Est GFR (Non-African American) 55.5; Potassium 3.4 mmol/L (3.5-5.1)
[2020-10-16] MEDS ORDERED: POTASSIUM CHLORIDE CRTAB 20 MEQ TABCR PO ONE (12:30)
[2020-10-16 14:38] LABS: Hematocrit (blood only) 41.3 % (42-52); Hemoglobin 13.8 g/dL (14.0-18.0)
[2020-10-16 15:00] LABS: Calcium 8.2 mg/dl (8.5-10.1); Creatinine Clr Calc Pharmacy 93.1 ml/min; Est GFR (African American) 78.1; Est GFR (Non-African American) 67.4; Magnesium 2.4 mg/dl (1.8-2.4); Potassium 3.6 mmol/L (3.5-5.1)
--- NOTE | 2020-10-16 16:07 | Discharge Summary ---
Date of Service October 16, 2020 Admission HPI Per Admitting Provider The patient is a 65-year-old male with a past medical history including DVT, PE, COPD, hypertension, GERD, insomnia, chronic tobacco use and on chronic anticoagulation with Xarelto. He has had ongoing abdominal pains for several months, he reportedly has been seen by his PCP, and has had multiple emergency department visits with no determination as to cause. In particular on Oct 14, the patient was seen initially at [facility] emergency department, then seen by Dr. Mijares at [facility] emergency department, and then was seen for a second [facility] emergency department visit later on that day. He reportedly has had 2 CTs of abdomen and pelvis performed, and reportedly 1 had been found to have cholelithiasis, and he was also reportedly scheduled to have an MRCP in the near future. Unfortunately, at the time of this dictation, there are 2 charts for this patient, with the present active chart not having any of his previous information in it. At this time in the emergency department, the patient is complaining more of loose stools, and would like to have an antidiarrheal agent. Admission Exam Per Admitting Provider The patient is awake, alert and oriented 3, well developed and well nourished, normocephalic and atraumatic, lying in bed and in no acute distress. HEENT--PERRL, EOMI, mucous membranes and oropharynx dry. Neck--supple. No JVD. No bruits. Thyroid normal, trachea midline, no adenopathy. Heart--normal S1 and S2. No murmurs, rubs or gallops. Lungs--clear bilaterally, no respiratory distress, no accessory muscle use. Abdomen--normal bowel sounds and soft. Mild generalized tenderness. Non distended. Morbidly obese Extremities--2+ bilateral pitting pedal and ankle edema Dermatologic--normal skin turgor, normal color, no abnormal lymph nodes, no rash. Neurologic--cranial nerves II through XII grossly intact. Rheumatologic--normal range of motion. Psychiatric--normal affect. Principal Diagnosis GI bleed Urinary tract infection Discharge Exam GENERAL : No acute distress EYES: No icterus, gaze conjugate NOSE: No evidence of epistaxis MOUTH: No lesions or candidiasis NECK: Supple LUNGS: CTA B/L, no wheezes, rales or rhonchi HEART: Regular, rate controlled ABDOMEN: Soft, NT, ND, BS Present EXTREMITIES: No LE edema, pedal pulses intact NEURO: A&OX3 Discharge Data Allergies Allergy/AdvReac Type Severity Reaction Status Date / Time Tetracyclines Allergy Severe Gastrointestinal Verified 10/16/20 08:09 Upset tetracycline AdvReac Intermediate SEVERE Verified 10/16/20 08:09 DIARRHEA doxycycline AdvReac diarrhea Verified 10/16/20 08:09 and nausea Consultations 10/16/20 05:27 ED Decision to Admit Stat 10/16/20 07:48 Consult Gastroenterology Routine Procedures Performed Operation Date: 10/17/20 16:00 <No data on this case meets the specified criteria> 10/16/20 14:26 10/16/20 14:26 Hospital Course (1) Bright red blood per rectum: Patient had reports of one episode of bright red blood per rectum prior to arrival in the emergency department. Appears to be from external hemorrhoid Admission hemoglobin is 14.5. Repeat hemoglobin done later in the day was 13.8 Patient was hemodynamically stable with no further bleeding per his report Gastroenterology was consulted and offered EGD and colonoscopy tomorrow Patient deferred on any inpatient testing and said that he would follow-up as an outpatient Patient specifically requests discharge this afternoon and has no further complaints of melena, hematochezia, or bright red blood per rectum He has no syncope or presyncope, no lightheadedness, no dizziness. Discharge home with self-care and follow-up with gastroenterology as an outpatient (2) Hypertension: Continue usual home medications Can restart lisinopril now that renal insufficiency is resolved Patient also advised to follow-up with Dr. 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 (3) GERD (gastroesophageal reflux disease): Continue PPI on discharge Follow-up with gastroenterology (4) COPD (chronic obstructive pulmonary disease): Continue patient's home Trelegy on discharge (5) Tobacco abuse: Patient is a daily every day smoker Counseled against continued smoking and to work on complete abstinence (6) Pulmonary embolism: History of pulmonary embolism and DVT Chronically anticoagulated with Xarelto We will continue Xarelto on discharge as lower GI bleed appears to be secondary to external hemorrhoid (7) Insomnia: Continue trazodone Advised patient that he should consider polysomnography due to body habitus and BMI of 42.2 kg/m Most likely with obstructive sleep apnea Outpatient follow-up (8) Renal insufficiency: Creatinine 1.41 on admission Received normal saline 100 mL/h Discharge creatinine was 1.15 (9) Chronic anticoagulation: Patient on Xarelto for history of pulmonary embolus and DVT Continue on discharge (10) Diarrhea: Patient reports chronic abdominal pain for the last year Watery diarrhea today Negative for C. difficile Advised patient to use Metamucil or other fiber products Follow-up with gastroenterology Total Time Total Time Spent Total Time Spent (In Minutes): 40 Total Time Includes: Examination of the Patient, Discharge Planning, Medication Reconciliation and Communication With Other Providers Discharge Plan Discharge Items Patient Disposition: Home - Self-Care Reason For Visit: LOWER GI BLEED ON XARELTO Discharge Diagnosis: Lower GI bleed Urinary tract infection Activity: Resume your previous activity Lifting: Gradually increase as tolerated Bathing: No limitations Exercise/Sports: Gradually increase as tolerated Weightbearing: Full weightbearing Non-emergency contact: Primary Care Provider Call non-emergency contact if: you have any medication questions and your temperature is above 101 Follow-up/Referrals: Terence Arellano MD [Primary Care Provider] - 10/23/20 1:15 pm Diet: Heart Healthy Addtl Attending Provider Instructions: You were admitted with what was assumed to be a lower GI bleed. Your hemoglobin dropped a little bit with repeat labs in the afternoon but not significantly. Your blood pressure has remained stable. You were found to have urinalysis which was concerning for infection. You received IV ceftriaxone in the hospital. This is an antibiotic to treat the urinary tract infection. You are being discharged on 3 additional days of cefdinir which is an oral antibiotic. This should be taken as prescribed until gone. Please follow-up with gastroenterology for further evaluation and consideration for EGD and colonoscopy. Pending Studies at Discharge: Yes Studies:: Procalcitonin Stand-Alone Forms: [facility] Medic[facility] and OR Order Prescriptions: New cefdinir 300 mg capsule 300 mg PO BID 5 Days Qty: 10 RF: 0 Continued verapamil 300 mg capsule, [address] 300 mg PO DAILY Qty: 90 RF: 3 Xarelto 20 mg tablet 20 mg PO DAILY Qty: 30 RF: 2 albuterol sulfate [Ventolin HFA] 90 mcg/actuation HFA aerosol inhaler 2 inh INH Q4H PRN (Reason: increased cough, shortness of breath or wheezing) Qty: 18 RF: 5 trazodone 50 mg tablet 50 mg PO DAILY PRN (Reason: sleep) Qty: 90 RF: 0 [id number] [Trelegy Ellipta] 100-62.5-25 mcg blister with device 1 inh inhalation QAM RF: 0 ipratropium-albuterol 0.5 mg-3 mg(2.5 mg base)/3 mL solution for nebulization 3 ml INHALATION DIRECTED Qty: 15 RF: 0 omeprazole 40 mg capsule,delayed release(DR/EC) 40 mg PO BID Qty: 60 RF: 2 sucralfate [Carafate] 100 mg/mL suspension 10 ml PO QID Qty: 420 RF: 2 sodium chloride 7 % solution for nebulization 4 ml inhalation BID Qty: 240 RF: 5 Trelegy Ellipta 200-62.5-25 mcg blister with device 1 inh inhalation DAILY Qty: 60 RF: 5 buspirone 10 mg tablet 10 mg PO TID PRN (Reason: anxiety) Qty: 90 RF: 2 potassium chloride 10 mEq capsule, extended release 10 meq PO DAILY Qty: 30 RF: 2 furosemide [Lasix] 20 mg tablet 20 mg PO DAILY Qty: 30 RF: 2 lisinopril 10 mg tablet 10 mg PO DAILY Qty: 30 RF: 2 ondansetron HCl 8 mg tablet 8 mg PO Q8H PRN (Reason: nausea and vomiting) 2 Days Qty: 14 RF: 1 nitroglycerin [Nitrostat] 0.4 mg tablet, sublingual 0.4 mg sublingual Q5M PRN (Reason: chest pain) Qty: 14 RF: 0 ondansetron HCl [Zofran] 4 mg tablet 4 mg PO Q8H PRN (Reason: nausea and vomiting) Qty: 20 RF: 0 trazodone 50 mg Tablet 50 mg PO HS RF: 0 lisinopril 20 mg Tablet 20 mg PO QAM RF: 0 omeprazole 40 mg Capsule,Delayed Release(Dr/Ec) 40 mg PO HS RF: 0 verapamil 300 mg Capsule, [address] 300 mg PO QAM RF: 0 albuterol sulfate 90 mcg/actuation Hfa Aerosol Inhaler 2 puff INHALATION QID PRN (Reason: Shortness Of Breath Or Wheezing) RF: 0 Xarelto 20 mg Tablet 20 mg PO HS RF: 0 Trelegy Ellipta 100-62.5-25 mcg Blister With Device 1 inh INHALATION QAM RF: 0 Discharge Orders: Discharge Order (Routine); Ordered 10/16/20 Ordered By: Oscar Martines/Other Patient Handouts: Treating Diarrhea Admission Data Admit Date/Time: 10/16/20 06:02 Attending Provider: Jaspreet Diana Admit Provider: Lenard James Primary Care Provider: Terence Arellano Other Providers: Lenard James ; Vinnie Calix Other Interventions: Discharge Summary Assessment (RN) Last Done: 10/16/20 16:18 Supervising Physician Co-Signing Physician Notes Patient seen and examined on the day of discharge. I agree with the discharge summary by Oscar EPPERSON. I have reviewed the chart including labs, imaging and plans for discharge. discussed with Dr. Calix, GI, he recommends to follow up for scopes as outpatient patient feeling better, no pain, tolerating diet - Chronic abdominal pain, diarrhea labs stable, CT from [place] without acute infection/inflammation will follow up with GI for colonoscopy and EGD Coding Level of Care Code Admit/DC Same Day >8hr Level 2 Diagnoses Bright red blood per rectum K62.5 Hypertension I10 GERD (gastroesophageal reflux disease) K21.9 COPD (chronic obstructive pulmonary disease) J44.9 Tobacco abuse Z72.0 Pulmonary embolism I26.99 Insomnia G47.00 Renal insufficiency N28.9 Chronic anticoagulation Z79.01 Diarrhea R19.7 Time Spent (min) 40
[2020-10-16] MEDS ORDERED: LAVAGE SOLUTION 4000ML PO SCH (18:00)
[2020-10-16] MEDS ORDERED: PANTOprazole 40 MG TAB PO SCH (21:00)
[2020-10-16] MEDS ORDERED: traZODone HCL 50 MG TAB PO SCH (21:00)
--- NOTE | 2020-10-17 05:58 | Electrocardiogram Report ---
Test Reason : Blood Pressure : / mmHG Vent. Rate : 085 BPM Atrial Rate : 088 BPM P-R Int : 210 ms QRS Dur : 106 ms QT Int : 374 ms P-R-T Axes : 000 029 107 degrees QTc Int : 445 ms Sinus rhythm with 1st degree A-V block Nonspecific T wave abnormality Abnormal ECG No previous ECGs available Confirmed by Roscoe Mahmood ([id number]) on 10/17/2020 5:58:23 AM Referred By: REFERRED SELF Confirmed By:Roscoe Mahmood
== END 2020-10-16 17:25 | disposition home or self-care (01) ==
LOC: EDBD → ED 03:57 → 3W 03:57 → SUATTDRO 06:02 → MERGE 06:02 → 3W 07:21